=== PATIENT | male | born 1950 | race Caucasian/White ===

== ENCOUNTER 2025-05-01 17:59 | Inpatient (IN) | payer MEDICARE, MEDICAID ==
[~2025-05-01] VITALS: Ht 177.8 cm; Wt 100.7 kg
[~2025-05-01 17:59] MED LIST: AMIO200T33 OR; AMOX875T3 OR; ASPI1TAB20 OR; CARV3.1240 OR; ENAL10TA86; ENAL1TAB42 OR; GLIP10TA3; TAMS0.4C39 OR; WARF6TAB2
[2025-05-01 18:21] VITALS: PULSE 91; RESP 18; O2SAT 94
--- NOTE | 2025-05-01 18:21 | ED.PDOC ---
HPI Comments 74 y.o male with PMHx of HTN, HLD, DM, CAD, PE, presents to the ED via EMS for an evaluation of high blood pressure. Patient reports for the past couple of days, BP has been fluctuating but does admits to only using half his HTN medication (Losartan). Patient reports since his BP has been well controlled in the past, he cut the dosage down but today measured it and resulted 210/110. EMS reports on scene, patient's BP read 191/89. Patient does complain of chest heaviness that is non radiating that started today around 10am and developed diarrhea x last night. Patient denies any nausea, vomiting, dizziness, headaches, change of vision, SOB, leg swelling. Patient denies substance, alcohol or tobacco use. Patient is on eliquis due to hx of PE. Chief Complaint: High Blood Pressure Time Seen by MD: 18:00 Primary Care Provider: JORGE HAVE Reviewed Notes: Nurses Notes, Dermatology Physician Notes, Medications, Allergies Allergies: Coded Allergies: Alprazolam (Verified Allergy, Unknown, 06/21/16) Aspirin (Verified Allergy, Unknown, 06/21/16) Haloperidol (Verified Allergy, Unknown, 06/21/16) Hydrocodone (Verified Allergy, Unknown, 06/21/16) Lorazepam (Verified Allergy, Unknown, 06/21/16) Home Meds Reported Medications Enalapril Maleate (Vasotec) 10 Mg Tab 03/16/13 Amiodarone Hcl (Amiodarone Hcl) 200 Mg Tab, 200 MG OR BID 08/24/12 Enalapril Maleate (Enalapril Maleate) 2.5 Mg Tab, 2.5 MG OR HS 08/24/12 Aspirin (Aspir-81) 81 Mg Tab, 81 MG OR DAILY 08/24/12 Tamsulosin Hcl (Tamsulosin Hcl) 0.4 Mg Cap, 0.4 MG OR HS 08/24/12 Carvedilol (Carvedilol) 3.125 Mg Tab, 25 MG OR BID, 0 Refills 08/24/12 Amoxicillin Trihydrate (Amoxicillin) 875 Mg Tab, 875 MG OR BID 08/24/12 Glipizide (Glucotrol) 10 Mg Tab, BID 06/04/12 Warfarin Sodium (Coumadin) 6 Mg Tab, DAILY Do not take until advised to do so by [facility] after Protime results back. 06/04/12 Information Source: Patient, Emergency Med Personnel Mode of Arrival: EMS Severity: Moderate Timing: Hours Duration: Since onset Prehospital treatment: 12 Lead EKG, Accucheck, Quality Facilitator Location: Substernal Radiation: No Radiation Quality: Heavy Onset: At Rest Cardiac Risk Factors: Hyperlipidemia, HTN, Diabetes PE Risk Factors: None History of: DVT/PE Modifying Factors: Nothing Associated Signs and Symptoms: None Past Medical History PAST MEDICAL HISTORY: Anxiety, CAD, DM, High Lipids, HTN, PE Surgical History: CABG Family History Family History: Family hx of Cancer Social History Smoker: Quit Less Than 1 Year Alcohol: Denies ETOH Use Drugs: Denies Drug Use Lives In: Home Constitutional: denies: chills, diaphoresis, fatigue, fever, malaise, sweats, weakness, others EENTM: denies: blurred vision, double vision, ear bleeding, ear discharge, ear drainage, ear pain, ear ringing, eye pain, eye redness, hearing loss, mouth pain, mouth swelling, nasal discharge, nose bleeding, nose congestion, nose pain, photophobia, tearing, throat pain, throat swelling, voice changes, others Respiratory: denies: cough, hemoptysis, orthopnea, SOB at rest, shortness of breath, SOB with excertion, stridor, wheezing, others Cardiovascular: reports: chest pain; denies: dizzy spells, diaphoresis, Dyspnea on exertion, edema, irregular heart beat, left arm pain, lightheadedness, palpitations, PND, syncope, others Gastrointestinal: reports: diarrhea; denies: abdomen distended, abdominal pain, blood streaked bowels, constipated, dysphagia, difficulty swallowing, hematemesis, melena, nausea, poor appetite, poor fluid intake, rectal bleeding, rectal pain, vomiting, others Genitourinary: denies: burning, dysuria, flank pain, frequency, hematuria, incontinence, penile discharge, penile sore, pain, testicle pain, testicle swelling, urgency, others Neurological: denies: dizziness, fainting, headache, left sided numbness, left sided weakness, numbness, paresthesia, pre-existing deficit, right sided numbness, right sided weakness, seizure, speech problems, tingling, tremors, weakness, others Musculoskeletal: denies: back pain, gout, joint pain, joint swelling, muscle pain, muscle stiffness, neck pain, others Integumetry: denies: bruises, change in color, change in hair/nails, dryness, laceration, lesions, lumps, rash, wounds, others Allergic/Immunocompromised: denies: Difficulty Healing, Frequent Infections, Hives, Itching, others Hematologic/Lymphatic: denies: anemia, blood clots, easy bleeding, easy bruising, swollen glands, others Endocrine: denies: excessive hunger, excessive sweating, excessive thirst, excessive urination, flushing, intolerance to cold, intolerance to heat, unexplained weight gain, unexplained weight loss, others Psychiatric: denies: anxiety, bipolar disorder, depression, hopeless, panic disorder, schizophrenia, sleepless, suicidal, others All Other Systems: Reviewed and Negative Physical Exam General Appearance: Moderate Distress, Obese HEENT: Normal ENT Inspection, Pharynx Normal, TMs Normal Neck: Full Range of Motion, Non-Tender, Normal, Normal Inspection Respiratory: Chest Non-Tender, Lungs Clear, No Accessory Muscle Use, No Respiratory Distress, Normal Breath Sounds Cardiovascular: No Edema, No JVD, No Murmur, No Gallop, Normal Peripheral Pulses, Regular Rate/Rhythm Breast Exam: Deferred Gastrointestinal: No Organomegaly, Non Tender, No Pulsatile Mass, Normal Bowel Sounds, Soft Genitalia: Deferred Pelvic: Deferred Rectal: Deferred Extremities: No calf tenderness, Normal capillary refill, No pedal edema Musculoskeletal : Apperance: Normal Neurologic: Alert, communication consultant II-XII nml as Tested, Motor Weakness, Normal Affect, Normal Mood, No Sensory Deficits Cerebellar Function: Normal Reflexes: Normal Skin: Dry, Normal Color, Warm Lymphatic: No Adenopathy EKG EKG : Pulse Rate (adult): 88 [place]: Normal Cardiac Rhythm: NSR Block: None ST: Nonsp Was a procedure done? Was a procedure done?: No CP Differential Dx Differential Diagnosis: N/A Differential Diagnosis: HTN Essential, HTN Accelerated, HTN Encephalopathy, Medical NonCompliance Differential Diagnosis: Angina, Chest Wall Pain, Costochondritis, Esophageal reflux/spasm, Myocardial Infarction, Pericarditis X-Ray, Labs, Meds, VS Vital Signs Date Time Temp Pulse Resp B/P (MAP) Pulse Ox O2 Delivery O2 Flow Rate FiO2 05/01/25 19:38 88 177/81 (113) 05/01/25 18:58 88 05/01/25 18:21 91 18 94 Room Air* 0 21 05/01/25 18:14 99.3 91 20 159/73 (101) 94 99.3 05/01/25 18:07 98.3 87 20 191/89 (123) 98 98.3 05/01/25 18:05 88 Lab Test 05/01/25 18:41 Range/Units White Blood Count 8.1 4.4-10.8 10^3/uL Red Blood Count 4.56 4.5-5.90 10^6/uL Hemoglobin 13.6 13.5-17.5 g/dL Hematocrit 40.8 L 41.0-53.0 % Mean Corpuscular Volume 89.5 80.0-100.0 fL Mean Corpuscular Hemoglobin 29.9 28.0-32.0 pg Mean Corpuscular Hemoglobin Concent 33.4 32.0-36.0 g/dL Red Cell Distribution Width 14.4 H 11.8-14.3 % Platelet Count 190 140-450 10^3/uL Mean Platelet Volume 6.8 L 6.9-10.8 fL Neutrophils (%) (Auto) 75.0 37.0-80.0 % Lymphocytes (%) (Auto) 16.1 10.0-50.0 % Monocytes (%) (Auto) 7.4 0.0-12.0 % Eosinophils (%) (Auto) 1.1 0.0-7.0 % Basophils (%) (Auto) 0.4 0.0-2.0 % Neutrophils # (Auto) 6.1 1.6-8.6 10 ^3/uL Lymphocytes # (Auto) 1.3 0.4-5.4 10 ^3/uL Monocytes # (Auto) 0.6 0-1.3 10 ^3/uL Eosinophils # (Auto) 0.1 0-0.8 10 ^3/uL Basophils # (Auto) 0 0-0.2 10 ^3/uL Nucleated Red Blood Cells 0.0 % Sodium Level 141 136-145 mmol/L Potassium Level 4.0 3.5-5.1 mmol/L Chloride Level 105 98-107 mmol/L Carbon Dioxide Level 26 20-31 mmol/L Anion Gap 10 5-15 Blood Urea Nitrogen 27 H 9-23 mg/dL Creatinine 0.99 0.700-1.30 mg/dL Glomerular Filtration Rate Calc 80 >90 mL/min BUN/Creatinine Ratio 27.3 H 10.0-20.0 Serum Glucose 164 H 74-106 mg/dL Calcium Level 10.1 8.7-10.4 mg/dL Troponin I High Sensitivity 4 </=54 ng/L IV Hep-Lock was established. The patient's blood pressure is now 159/73 CHEST RADIOGRAPH IMPRESSION: Elevated left hemidiaphragm with left basilar atelectasis / scarring. Otherwise, no evidence for acute cardiopulmonary disease. IV Hep-Lock was established. The patient is being admitted with a diagnosis of acute coronary syndrome The patient was hypertensive when he arrived but is now 177/81 The patient's CBC and chemistry panel are within normal limits The troponin level is negative A cardiology consult will be obtained The patient is being admitted Images Reviewed?: Images reviewed and evaluated by me Time of 1ST Reevaluation: 19:00 Reevaluation 1ST: Unchanged Patient Education/Counseling: Diagnosis, Treatment, Prognosis Family Education/Counseling: No Family Present SEPSIS Sepsis Screen Date sepsis recognized/suspect: May 01, 2025 Time Sepsis recognized/suspect: 1800 Recent Procedure: No On Antibiotic Therapy: No Respiratory Rate >20: No Heart Rate >90: No Temp<36 C (96.8 F) or >38.3 C: No SBP <90 or MAP <65 mmHG: No New Acute Mental Status Change: No Is the patient on CPAP, BIPAP,: No Physician Orders Chest Portable (05/01/25 18:30) Urinalysis (05/01/25 18:30) Heplock Iv (05/01/25 18:30) Quality Facilitator (05/01/25 18:30) Blood Pressure (05/01/25 18:30) Pulse Oximetry (05/01/25 18:30) Electrocardigram (05/01/25 18:30) Troponin-I Hs (05/01/25 19:30) Troponin-I Hs (05/01/25 21:30) Electrocardigram (05/01/25 19:30) Electrocardigram (05/01/25 21:30) Vital Signs Date Time Temp Pulse Resp B/P (MAP) Pulse Ox O2 Delivery O2 Flow Rate FiO2 05/01/25 19:38 88 177/81 (113) 05/01/25 18:58 88 05/01/25 18:21 91 18 94 Room Air* 0 21 05/01/25 18:14 99.3 91 20 159/73 (101) 94 99.3 05/01/25 18:07 98.3 87 20 191/89 (123) 98 98.3 05/01/25 18:05 88 Laboratory Tests Test 05/01/25 18:41 White Blood Count 8.1 10^3/uL (4.4-10.8) Departure 1 Departure Time of Disposition: 18:58 Impression: Primary Impression: Hypertensive urgency Additional Impression: Acute coronary syndrome Disposition: ADMITTED INPATIENT Admit to: Tele Condition: Fair Critical Care Note Critical Care Time?: Yes (45 min-critical care time only) Stability Stability form required: Yes Unstable for transfer: Telemetry monitoring (Telemetry monitoring required), ED Physician Assesment (Clinical assesment) Heart Score Heart Score: Heart Score Response (Comments) Value History Slightly Suspicious 0 EKG Repolarization Disturb 1 Age >65 2 Risk Factors >3 or Hx ASHD 2 Troponin Normal limit 0 Total 5 I personally scribed for CYNDI LEWIS MD ([employer]) on 05/01/25 at 18:21. Electronically submitted by Shameka Rangel ([employer]). I personally scribed for CYNDI LEWIS MD ([employer]) on 05/01/25 at 19:32. Electronically submitted by Shameka Rangel ([employer]). CYNDI LEWIS MD May 01, 2025 18:21
--- NOTE | 2025-05-01 19:10 | DVH ---
CHEST RADIOGRAPH Indication: CP Technique: Single frontal view of the chest was obtained Comparison: None FINDINGS: Lines and Tubes: None Lungs: No focal consolidation. Elevation of the left hemidiaphragm with left basilar linear density. Pleura: No effusion. No pneumothorax. Cardiomediastinal contours: Size is within normal limits. Midline sternotomy wires surgical clips ar e noted consistent with prior history of CABG Bones: No acute osseous abnormality. IMPRESSION: Elevated left hemidiaphragm with left basilar atelectasis / scarring. Otherwise, no evidence for acu te cardiopulmonary disease.
[2025-05-01 19:17] LABS: Hematocrit 40.8 % (41.0-53.0); Hemoglobin 13.6 g/dL (13.5-17.5); Mean Corpuscular Hemoglobin 29.9 pg (28.0-32.0); Mean Corpuscular Volume 89.5 fL (80.0-100.0); Nucleated Red Blood Cells % 0.0 %
[2025-05-01 19:28] LABS: Chloride 105 mmol/L (98-107); Potassium 4.0 mmol/L (3.5-5.1); Sodium 141 mmol/L (136-145)
[2025-05-01 19:29] LABS: Anion Gap 10 (5-15); Calcium 10.1 mg/dL (8.7-10.4); Carbon Dioxide 26 mmol/L (20-31)
[2025-05-01 19:34] LABS: BUN/Creatinine Ratio 27.3 (10.0-20.0)
[2025-05-01 19:38] LABS: Blood Urea Nitrogen 27 mg/dL (9-23); Glucose 164 mg/dL (74-106)
[2025-05-01] MEDS ORDERED: ACETAMINOPHEN 325 MG TAB PO PRN (20:00)
[2025-05-01] MEDS ORDERED: DEXTROSE (50%) 50ML SYRG IV PRN (20:00)
[2025-05-01] MEDS ORDERED: ONDANSETRON HCL 4 MG/2 ML VIAL IV PRN (20:00)
[2025-05-01 20:55] LABS: Urine Protein, UAD TRACE (Negative)
[2025-05-01] MEDS ORDERED: hydrALAZINE HCL 20 MG/ML VL IV PRN (21:30)
--- NOTE | 2025-05-01 21:32 | DVHHP2 ---
History of Present Illness Reason for Visit: High blood pressure History of Present Illness 74-year-old male presents for evaluation of elevated blood pressure. He states today his blood pressure was in the 200s. Denies headache or blurred vision. Does report substernal heaviness. Denies shortness or breath. No other acute complaints reported. Past Medical History Dyslipidemia, hypertension, diabetes mellitus, CAD Past Surgical History CABG Family History Cancer Smoke: Quit ALCOHOL: none Drugs: None Lives: with Family Review of Systems Review of Systems Review of systems are currently negative otherwise addressed in HPI. Allergies: Coded Allergies: Alprazolam (Verified Allergy, Unknown, 06/21/16) Aspirin (Verified Allergy, Unknown, 06/21/16) Haloperidol (Verified Allergy, Unknown, 06/21/16) Hydrocodone (Verified Allergy, Unknown, 06/21/16) Lorazepam (Verified Allergy, Unknown, 06/21/16) Medications Current Medications Medications Dose Ordered Sig/Ginger Route Start Time Stop Time Status Last Admin Dose Admin Pravastatin Sodium 40 mg HS PO 05/01/25 22:00 Enalapril Maleate 10 mg Q12HR PO 05/01/25 22:00 Losartan Potassium 50 mg DAILY PO 05/02/25 10:00 Future Hold Apixaban 2.5 mg DAILY PO 05/02/25 10:00 Carvedilol 12.5 mg Q12HR PO 05/01/25 22:00 Diagnostic Test (Pha) 1 strip ACHS 05/01/25 22:00 Insulin Human Regular ACHS SC 05/01/25 22:00 Dextrose 50 ml UD PRN IV 05/01/25 20:00 Ondansetron HCl 4 mg Q4HP PRN IV 05/01/25 20:00 Acetaminophen 650 mg Q6HP PRN PO 05/01/25 20:00 Hydralazine HCl 10 mg Q6HP PRN IV 05/01/25 21:30 UNV Exam Vital Signs Vital Signs Date Time Temp Pulse Resp B/P (MAP) Pulse Ox O2 Delivery O2 Flow Rate FiO2 05/01/25 19:38 88 177/81 (113) 05/01/25 18:21 18 94 Room Air* 0 21 05/01/25 18:14 99.3 99.3 Exam Gen: 74-year-old male in mild distress. Skin: Warm, dry, normal color and texture, no rash. HEENT: Normocephalic atraumatic, mucous membranes moist and pink. Neck: Cervical and supraclavicular nodes normal without enlargement, trachea is midline, thyroid gland is normal without masses. Pulmonary: Clear to auscultation and percussion bilaterally. Cardiac: Regular rate and rhythm. No murmur Abdomen: Soft, nontender, nondistended, bowel sounds present all 4 quadrants, no guarding, no rigidity, no organomegaly. Extremities: No cyanosis, clubbing, no edema Neuro: Cranial nerves II through XII grossly intact, normal affect and speech, no focal motor deficits. Labs/Xrays ORDERING PHYSICIAN: CYNDI LEWIS MD PROCEDURE(s): CXRP - CHEST PORTABLE REASON: CP ORDER NUMBER(s): [id number], ACCESSION NUMBER(s): [id number] CHEST RADIOGRAPH Indication: CP Technique: Single frontal view of the chest was obtained Comparison: None FINDINGS: Lines and Tubes: None Lungs: No focal consolidation. Elevation of the left hemidiaphragm with left basilar linear density. Pleura: No effusion. No pneumothorax. Cardiomediastinal contours: Size is within normal limits. Midline sternotomy wires surgical clips are noted consistent with prior history of CABG Bones: No acute osseous abnormality. IMPRESSION: Elevated left hemidiaphragm with left basilar atelectasis / scarring. Otherwise, no evidence for acute cardiopulmonary disease. Labs Test 05/01/25 20:30 05/01/25 19:41 05/01/25 18:41 Range/Units Urine Color Colorless Yellow Urine Clarity Ex.turbid Clear Urine pH 5.0 5.0-9.0 Urine Specific [place] 1.017 1.001-1.035 Urine Protein Trace H Negative Urine Ketones 1+ H Negative Urine Blood 3+ H Negative /uL Urine Nitrite Negative Negative Urine Bilirubin Negative Negative Urine Urobilinogen Normal Negative mg/dL Urine Leukocyte Esterase Negative Negative /uL Urine RBC 303 0 - 3 /hpf Urine Microscopic WBC 10 H 0-3 /HPF Urine Squamous Epithelial Cells Few <5 /hpf Urine Bacteria None seen None Seen /hpf Urine Mucus Few None Seen Urine Glucose Normal Normal mg/dL Troponin I High Sensitivity 9 </=54 ng/L White Blood Count 8.1 4.4-10.8 10^3/uL Red Blood Count 4.56 4.5-5.90 10^6/uL Hemoglobin 13.6 13.5-17.5 g/dL Hematocrit 40.8 L 41.0-53.0 % Mean Corpuscular Volume 89.5 80.0-100.0 fL Mean Corpuscular Hemoglobin 29.9 28.0-32.0 pg Mean Corpuscular Hemoglobin Concent 33.4 32.0-36.0 g/dL Red Cell Distribution Width 14.4 H 11.8-14.3 % Platelet Count 190 140-450 10^3/uL Mean Platelet Volume 6.8 L 6.9-10.8 fL Neutrophils (%) (Auto) 75.0 37.0-80.0 % Lymphocytes (%) (Auto) 16.1 10.0-50.0 % Monocytes (%) (Auto) 7.4 0.0-12.0 % Eosinophils (%) (Auto) 1.1 0.0-7.0 % Basophils (%) (Auto) 0.4 0.0-2.0 % Neutrophils # (Auto) 6.1 1.6-8.6 10 ^3/uL Lymphocytes # (Auto) 1.3 0.4-5.4 10 ^3/uL Monocytes # (Auto) 0.6 0-1.3 10 ^3/uL Eosinophils # (Auto) 0.1 0-0.8 10 ^3/uL Basophils # (Auto) 0 0-0.2 10 ^3/uL Nucleated Red Blood Cells 0.0 % Sodium Level 141 136-145 mmol/L Potassium Level 4.0 3.5-5.1 mmol/L Chloride Level 105 98-107 mmol/L Carbon Dioxide Level 26 20-31 mmol/L Anion Gap 10 5-15 Blood Urea Nitrogen 27 H 9-23 mg/dL Creatinine 0.99 0.700-1.30 mg/dL Glomerular Filtration Rate Calc 80 >90 mL/min BUN/Creatinine Ratio 27.3 H 10.0-20.0 Serum Glucose 164 H 74-106 mg/dL Calcium Level 10.1 8.7-10.4 mg/dL SEPSIS Sepsis Screen Date sepsis recognized/suspect: May 01, 2025 Time Sepsis recognized/suspect: 1819 Recent Procedure: No On Antibiotic Therapy: No Respiratory Rate >20: No Heart Rate >90: No Temp<36 C (96.8 F) or >38.3 C: No SBP <90 or MAP <65 mmHG: No New Acute Mental Status Change: No Is the patient on CPAP, BIPAP,: No Physician Orders Chest Portable (05/01/25 18:30) Heplock Iv (05/01/25 18:30) Protein Scientist (05/01/25 18:30) Blood Pressure (05/01/25 18:30) Pulse Oximetry (05/01/25 18:30) Electrocardigram (05/01/25 18:30) Troponin-I Hs (05/01/25 21:30) Electrocardigram (05/01/25 19:30) Electrocardigram (05/01/25 21:30) Admit (05/01/25 19:54) Pravastatin Sodium Tablet (Pravachol Tab (05/01/25 22:00) Enalapril Tablet (Vasotec Tablet) (05/01/25 22:00) Losartan Tablet (Cozaar Tablet) (05/02/25 10:00) Apixaban (Eliquis) (05/02/25 10:00) Carvedilol Tablet (Coreg Tablet) (05/01/25 22:00) Basic Metabolic Panel (05/02/25 04:00) Glucose Blood (Accu-Chek Comfort Curve T (05/01/25 22:00) Insulin R (Human) (Insulin R) (05/01/25 22:00) Dextrose 50% Syringe (05/01/25 20:00) Ondansetron Hcl (Zofran) (05/01/25 20:00) Cardiac Diet-2gna,Lofat,Lochol (05/02/25 Breakfast) Echo 2d Mode Cardiac Dop (05/01/25 19:57) Condition: Stable (05/01/25 19:57) Acetaminophen Tablet (Tylenol Tablet) (05/01/25 20:00) Bedrest With Bathroom Privileg (05/01/25 19:57) Hydralazine Injection (Apresoline Inject (05/01/25 21:30) Vital Signs Date Time Temp Pulse Resp B/P (MAP) Pulse Ox O2 Delivery O2 Flow Rate FiO2 05/01/25 19:38 88 177/81 (113) 05/01/25 18:58 88 05/01/25 18:21 91 18 94 Room Air* 0 21 05/01/25 18:14 99.3 91 20 159/73 (101) 94 99.3 05/01/25 18:07 98.3 87 20 191/89 (123) 98 98.3 05/01/25 18:05 88 Laboratory Tests Test 05/01/25 18:41 White Blood Count 8.1 10^3/uL (4.4-10.8) Assessment/Plan Assessment/Plan Assessment Hypertensive urgency Diabetes mellitus Status post CABG Plan Admit the patient to [facility] to the hospitalist As needed antihypertensives Echocardiogram pending Continue treatment per orders. Plan discussed with: Patient My Orders Orders - ROMARIO MICHEL Procedure Category Date Status Time Admit ADMIT 05/01/25 Transmitted 19:54 Pravastatin Sodium PHA 05/01/25 In Process Tablet (Pravachol Tab 22:00 Enalapril Tablet PHA 05/01/25 In Process (Vasotec Tablet) 22:00 Losartan Tablet PHA 05/02/25 In Process (Cozaar Tablet) 10:00 Apixaban (Eliquis) PHA 05/02/25 In Process 10:00 Carvedilol Tablet PHA 05/01/25 In Process (Coreg Tablet) 22:00 Basic Metabolic Panel LAB 05/02/25 Verified 04:00 Glucose Blood PHA 05/01/25 In Process (Accu-Chek Comfort 22:00 Insulin R (Human) PHA 05/01/25 In Process (Insulin R) 22:00 Dextrose 50% Syringe PHA 05/01/25 In Process 20:00 Ondansetron Hcl PHA 05/01/25 In Process (Zofran) 20:00 Cardiac DIET 05/02/25 Transmitted Diet-2gna,Lofat,Lochol Breakfast Echo 2d Mode Cardiac US 05/01/25 Logged DOP 19:57 Condition: Stable JUAN 05/01/25 In Process 19:57 Acetaminophen Tablet PHA 05/01/25 In Process (Tylenol Tablet) 20:00 Bedrest With Bathroom JUAN 05/01/25 In Process Privileg 19:57 Hydralazine Injection PHA 05/01/25 Transmitted (Apresoline Inject 21:30 Date of Service: May 01, 2025 Billing Provider: ROMARIO MICHEL Common Visit Codes: [id number] INP/OBS CARE (HIGH) ROMARIO MICHEL May 01, 2025 21:32
[2025-05-01] MEDS: ENALAPRIL MALEATE 10 MG TAB PO SCH (22:00)
[2025-05-01] MEDS: CARVEDILOL 12.5 MG TAB PO SCH (22:00)
[2025-05-01] MEDS: ACCU-CHEK COMFORT CURVE STRIP VI SCH (22:00)
[2025-05-01 22:11] VITALS: BP 142/70; PULSE 99; RESP 14; RESP 18; TEMP 97.8; O2SAT 95
[2025-05-01] MEDS: PRAVASTATIN SODIUM 20 MG TAB PO SCH (22:57)
[2025-05-01] MEDS ORDERED: METF-372 PO (23:00)
[2025-05-01] MEDS ORDERED: ENAL1TAB48 PO (23:00)
[2025-05-01] MEDS ORDERED: CARV25TA55 PO (23:00)
[2025-05-01] MEDS ORDERED: GLIP10TA21 PO (23:00)
[2025-05-01] MEDS ORDERED: APIX2.5T PO (23:00)
[2025-05-01] MEDS ORDERED: LOSA-534 PO (23:00)
[2025-05-01] MEDS ORDERED: LINA5TAB PO (23:00)
[2025-05-01] MEDS: InsuLIN REG 1unit/0.01ml Soln (100units/ml) SC SCH (23:03)
[2025-05-02] VITALS (7 sets, daily range): BP systolic 105–156; BP diastolic 57–82; PULSE 74–87; RESP 14–17; TEMP 97.8–98.9; O2SAT 93–98
[2025-05-02 07:21] LABS: Anion Gap 9 (5-15); Carbon Dioxide 29 mmol/L (20-31); Chloride 104 mmol/L (98-107); Potassium 3.8 mmol/L (3.5-5.1); Sodium 142 mmol/L (136-145)
[2025-05-02 07:22] LABS: Calcium 9.8 mg/dL (8.7-10.4)
[2025-05-02 07:27] LABS: BUN/Creatinine Ratio 24.5 (10.0-20.0); Blood Urea Nitrogen 23 mg/dL (9-23)
[2025-05-02 07:29] LABS: Glucose 157 mg/dL (74-106)
[2025-05-02] MEDS: APIXABAN 2.5 MG TAB PO SCH (09:10)
[2025-05-02] MEDS ORDERED: LOSARTAN POTASSIUM 50 MG TAB PO SCH (10:00)
--- NOTE | 2025-05-02 13:09 | DVHPN2 ---
Progress Note Date Seen: May 02, 2025 Medical Necessity Reason Pt with a Central, PICC or Fol: No Subjective Patient reports: No new complaints Review of Systems: HEENT:Normal, CVS:Normal, RESPIRATORY:Normal, GI:Normal, :Normal, MSK:Normal, NEURO:Normal Objective vital signs Vital Sign Date Time Temp Pulse Resp B/P (MAP) Pulse Ox O2 Delivery O2 Flow Rate FiO2 05/02/25 10:11 73 127/72 05/02/25 08:40 98.9 14 97 98.9 05/02/25 08:01 Room Air* 0 21 Total Intake and Output 05/01/25 05/01/25 05/02/25 15:00 23:00 07:00 Intake Total 300 ml Balance 300 ml medications Current Medications Medications Dose Ordered Sig/Ginger Route Start Time Stop Time Status Last Admin Dose Admin Pravastatin Sodium 40 mg HS PO 05/01/25 22:00 05/01/25 22:57 40 MG Enalapril Maleate 10 mg Q12HR PO 05/01/25 22:00 05/02/25 09:11 10 MG Losartan Potassium 50 mg DAILY PO 05/02/25 10:00 Hold Apixaban 2.5 mg DAILY PO 05/02/25 10:00 05/02/25 09:10 2.5 MG Carvedilol 12.5 mg Q12HR PO 05/01/25 22:00 05/02/25 09:11 12.5 MG Diagnostic Test (Pha) 1 strip ACHS 05/01/25 22:00 05/02/25 11:49 1 STRIP Insulin Human Regular ACHS SC 05/01/25 22:00 05/02/25 11:49 3 UNITS Dextrose 50 ml UD PRN IV 05/01/25 20:00 Ondansetron HCl 4 mg Q4HP PRN IV 05/01/25 20:00 Acetaminophen 650 mg Q6HP PRN PO 05/01/25 20:00 Hydralazine HCl 10 mg Q6HP PRN IV 05/01/25 21:30 Examination: GENERAL:Normal, HEENT:Normal, NECK:Normal, LUNGS:Normal, CVS:Normal, ABDOMEN:Normal, MSK:Normal, MSK:Abnormal (rash both legs), SKIN:Normal, NEURO:Normal, :Normal laboratory and microbiology Laboratory Tests 05/02/25 06:10 05/01/25 18:41 Test 05/02/25 06:10 Range/Units Serum Glucose 157 H 74-106 mg/dL Problem List/Assessment/Plan Problem List/Assessment/Plan #1 hypertensive urgency: cont meds #2 chest pain: cardio eval #3 cad s/p cabg #4 a fib with secondary hypercoaguable state #5 dm:ssi #6 hyperlipidemia #7 bph #8 obesity advance care planning- full code- time spent 19 mins Plan discussed with: Patient My Orders My Orders Orders - ROMARIO MARTINEZ MD Procedure Category Date Status Time * Cardiology Consult CONS 05/02/25 Transmitted 13:02 Echo 2d Mode Cardiac US 05/02/25 Logged DOP 13:02 Complete Blood Count LAB 05/03/25 Verified 06:00 Comprehensive LAB 05/03/25 Verified Metabolic Panel 06:00 Thyroid Stimulating LAB 05/03/25 Verified Hormone 05:00 Hemoglobin A1c LAB 05/03/25 Verified 06:00 Date of Service: May 02, 2025 Billing Provider: ROMARIO MARTINEZ MD Common Visit Codes: [id number] INP/OBS CARE(HIGH) Secondary Visit Codes: [id number] CARE PLAN 30 MINUTES ROMARIO MARTINEZ MD May 02, 2025 13:09
--- NOTE | 2025-05-02 13:11 | ECG ---
[facility] Test Date: 2025-05-01 Test Time: 18:05:15 Pat Name: ALEK QUINONEZ Department: ED Room: [facility] Gender: M Process Safety Engineer: BK : [id number] Requested By: CYNDI LEWIS Order Number: [id number] Reading MD: Fabian Gupta Measurements Intervals [place] Rate: 88 P: 44 RI: 152 QRS: -18 QRSD: 97 T: 61 QT: 355 QTc: 430 Interpretive Statements Sinus rhythm Borderline left axis deviation Electronically Signed On 05-03-2025 16:59:14 PDT by Fabian Gupta Please click the below link to view image of tracing.
[2025-05-02] MEDS: TAMSULOSIN HYDROCHLORIDE 0.4 MG CAP PO SCH (16:51)
[2025-05-02] MEDS: AMIODARONE HCL 200 MG TAB PO SCH (22:00)
--- NOTE | 2025-05-02 23:47 | DVHINCON2 ---
Date of service: May 02, 2025 Referring Physician Kyle Reason for Consultation CAD History of Present Illness This is a 74 year old male with a PMH of Anxiety, CAD, DM, High Lipids, HTN, PE who was brought in by EMS with complaints of high blood pressure. Patient reports for the past couple of days his BP has been fluctuating but does admits to only using half his HTN medication (Losartan). Patient reports since his BP has been well controlled in the past, he cut the dosage down but today measured it at 210/110. Per EMS reports, the patients BP was 191/89. Patient does complain of chest heaviness that is non radiating that started today around 10am and developed diarrhea last night. EKG is NSR at 88. CBC and chemistry panel are within normal limits. Troponin level is negative. Chest x-ray shows NAD. Patient was admitted to the hospital. I am asked to consult on this patient. Family History: Patient reports no known family medical history. Allergies: Coded Allergies: Alprazolam (Verified Allergy, Unknown, 06/21/16) Aspirin (Verified Allergy, Unknown, 06/21/16) Haloperidol (Verified Allergy, Unknown, 06/21/16) Hydrocodone (Verified Allergy, Unknown, 06/21/16) Lorazepam (Verified Allergy, Unknown, 06/21/16) Home Meds Reported Medications Glipizide (Glipizide Er) 10 Mg Tab, 1 TAB PO DAILY 05/01/25 Metformin Hydrochloride (Metformin Hcl) 1,000 Mg Tab, 1 TAB PO BID 05/01/25 Linagliptin Base (TRADJENTA) 5 Mg Tab, 1 TAB PO DAILY 05/01/25 Apixaban Base (ELIQUIS) 2.5 Mg Tab, TAB PO 05/01/25 Losartan Potassium (Losartan Potassium) 50 Mg Tab, 1 TAB PO DAILY 05/01/25 Enalapril Maleate (Enalapril Maleate) 20 Mg Tab, 1 TAB PO BID 05/01/25 Carvedilol (Carvedilol) 25 Mg Tab, TAB PO 05/01/25 Enalapril Maleate (Vasotec) 10 Mg Tab 03/16/13 Amiodarone Hcl (Amiodarone Hcl) 200 Mg Tab, 200 MG OR BID 08/24/12 Enalapril Maleate (Enalapril Maleate) 2.5 Mg Tab, 2.5 MG OR HS 08/24/12 Aspirin (Aspir-81) 81 Mg Tab, 81 MG OR DAILY 08/24/12 Tamsulosin Hcl (Tamsulosin Hcl) 0.4 Mg Cap, 0.4 MG OR HS 08/24/12 Carvedilol (Carvedilol) 3.125 Mg Tab, 25 MG OR BID, 0 Refills 08/24/12 Amoxicillin Trihydrate (Amoxicillin) 875 Mg Tab, 875 MG OR BID 08/24/12 Glipizide (Glucotrol) 10 Mg Tab, BID 06/04/12 Warfarin Sodium (Coumadin) 6 Mg Tab, DAILY Do not take until advised to do so by [facility] after Pro[facility] results back. 06/04/12 Current Medications Current Medications Medications (Trade) Dose Ordered Sig/Ginger Route PRN Reason Start Time Stop Time Status Last Admin Losartan Potassium (Cozaar Tablet) 50 mg DAILY PO 05/02/25 10:00 05/02/25 13:06 DC Apixaban (Eliquis) 2.5 mg DAILY PO 05/02/25 10:00 05/02/25 09:10 Tamsulosin HCl (Flomax) 0.4 mg QPM PO 05/02/25 18:00 05/02/25 16:57 Amiodarone HCl (Cordarone Tablet) 200 mg Q12HR PO 05/02/25 22:00 Review of Systems Constitutional: denies: chills, diaphoresis, fatigue, fever, malaise, sweats, weakness, others EENTM: denies: blurred vision, double vision, ear bleeding, ear discharge, ear drainage, ear pain, ear ringing, eye pain, eye redness, hearing loss, mouth pain, mouth swelling, nasal discharge, nose bleeding, nose congestion, nose pain, photophobia, tearing, throat pain, throat swelling, voice changes, others Respiratory: denies: cough, hemoptysis, orthopnea, SOB at rest, shortness of breath, SOB with excertion, stridor, wheezing, others Cardiovascular: reports: chest pain; denies: dizzy spells, diaphoresis, Dyspnea on exertion, edema, irregular heart beat, left arm pain, lightheadedness, palpitations, PND, syncope, others Gastrointestinal: reports: diarrhea; denies: abdomen distended, abdominal pain, blood streaked bowels, constipated, dysphagia, difficulty swallowing, hematemesis, melena, nausea, poor appetite, poor fluid intake, rectal bleeding, rectal pain, vomiting, others Genitourinary: denies: burning, dysuria, flank pain, frequency, hematuria, incontinence, penile discharge, penile sore, pain, testicle pain, testicle swelling, urgency, others Neurological: denies: dizziness, fainting, headache, left sided numbness, left sided weakness, numbness, paresthesia, pre-existing deficit, right sided numbness, right sided weakness, seizure, speech problems, tingling, tremors, weakness, others Musculoskeletal: denies: back pain, gout, joint pain, joint swelling, muscle pain, muscle stiffness, neck pain, others Integumetry: denies: bruises, change in color, change in hair/nails, dryness, laceration, lesions, lumps, rash, wounds, others Allergic/Immunocompromised: denies: Difficulty Healing, Frequent Infections, Hives, Itching, others Hematologic/Lymphatic: denies: anemia, blood clots, easy bleeding, easy bruising, swollen glands, others Endocrine: denies: excessive hunger, excessive sweating, excessive thirst, excessive urination, flushing, intolerance to cold, intolerance to heat, unexplained weight gain, unexplained weight loss, others Psychiatric: denies: anxiety, bipolar disorder, depression, hopeless, panic disorder, schizophrenia, sleepless, suicidal, others All Other Systems: Reviewed and Negative Vital Signs Vital Signs Date Time Temp Pulse Resp B/P (MAP) Pulse Ox O2 Delivery O2 Flow Rate FiO2 05/02/25 22:39 156/81 05/02/25 22:38 84 05/02/25 21:00 98.3 16 95 98.3 05/02/25 08:01 Room Air* 0 21 Physical Exam GENERAL: Alert and oriented x 3. No acute distress. Obese. EYES: PERRL, EOMI. Anicteric. HENT: Moist mucous membranes. LUNGS: Clear to auscultation bilaterally. CARDIOVASCULAR: Regular rate and rhythm. ABDOMEN: Soft, non-tender and non-distended. EXTREMITIES: No edema. NEUROLOGIC: No focal neurological deficits. SKIN: Warm, dry. Labs/Diagnostic Data Labs Test 05/02/25 22:46 05/02/25 06:10 05/01/25 21:22 05/01/25 20:30 Range/Units POC Glucose 178 H 70-106 mg/dl Sodium Level 142 136-145 mmol/L Potassium Level 3.8 3.5-5.1 mmol/L Chloride Level 104 98-107 mmol/L Carbon Dioxide Level 29 20-31 mmol/L Anion Gap 9 5-15 Blood Urea Nitrogen 23 9-23 mg/dL Creatinine 0.94 0.700-1.30 mg/dL Glomerular Filtration Rate Calc 86 >90 mL/min BUN/Creatinine Ratio 24.5 H 10.0-20.0 Serum Glucose 157 H 74-106 mg/dL Calcium Level 9.8 8.7-10.4 mg/dL Troponin I High Sensitivity 5 </=54 ng/L Urine Color Colorless Yellow Urine Clarity Ex.turbid Clear Urine pH 5.0 5.0-9.0 Urine Specific [place] 1.017 1.001-1.035 Urine Protein Trace H Negative Urine Ketones 1+ H Negative Urine Blood 3+ H Negative /uL Urine Nitrite Negative Negative Urine Bilirubin Negative Negative Urine Urobilinogen Normal Negative mg/dL Urine Leukocyte Esterase Negative Negative /uL Urine RBC 303 0 - 3 /hpf Urine Microscopic WBC 10 H 0-3 /HPF Urine Squamous Epithelial Cells Few <5 /hpf Urine Bacteria None seen None Seen /hpf Urine Mucus Few None Seen Urine Glucose Normal Normal mg/dL Test 05/01/25 18:41 Range/Units White Blood Count 8.1 4.4-10.8 10^3/uL Red Blood Count 4.56 4.5-5.90 10^6/uL Hemoglobin 13.6 13.5-17.5 g/dL Hematocrit 40.8 L 41.0-53.0 % Mean Corpuscular Volume 89.5 80.0-100.0 fL Mean Corpuscular Hemoglobin 29.9 28.0-32.0 pg Mean Corpuscular Hemoglobin Concent 33.4 32.0-36.0 g/dL Red Cell Distribution Width 14.4 H 11.8-14.3 % Platelet Count 190 140-450 10^3/uL Mean Platelet Volume 6.8 L 6.9-10.8 fL Neutrophils (%) (Auto) 75.0 37.0-80.0 % Lymphocytes (%) (Auto) 16.1 10.0-50.0 % Monocytes (%) (Auto) 7.4 0.0-12.0 % Eosinophils (%) (Auto) 1.1 0.0-7.0 % Basophils (%) (Auto) 0.4 0.0-2.0 % Neutrophils # (Auto) 6.1 1.6-8.6 10 ^3/uL Lymphocytes # (Auto) 1.3 0.4-5.4 10 ^3/uL Monocytes # (Auto) 0.6 0-1.3 10 ^3/uL Eosinophils # (Auto) 0.1 0-0.8 10 ^3/uL Basophils # (Auto) 0 0-0.2 10 ^3/uL Nucleated Red Blood Cells 0.0 % Assessment Hypertensive urgency. Chest pain. CAD s/p CABG. A fib with secondary hypercoagulable state. DM. Hyperlipidemia BPH. Obesity. Plan/Recommendation I agree with your ongoing assessment and care of plan. Echocardiogram. Amiodarone. Eliquis. Coreg, Vasotec. IV Hydralazine for SBP >150. Additional plan as per the hospital course. A total of 45 minutes was spent reviewing the patient record, examining the patient, making a diagnostic and therapeutic plan, discussing this plan with medical personnel, following up on diagnostic studies and following the patient for clinical stability excluding any and all procedures. At least 50% of this time was spent in direct, [id number] contact. Plan discussed with: Patient ALEXANDRA MARTINEZ MD May 02, 2025 23:47
[2025-05-03 01:00] VITALS: BP 127/76; PULSE 76; RESP 16; TEMP 98.3; O2SAT 94
[2025-05-03 05:00] VITALS: BP 122/64; PULSE 74; RESP 16; TEMP 97.7; O2SAT 93
[2025-05-03 06:41] LABS: Hematocrit 35.4 % (41.0-53.0); Hemoglobin 12.2 g/dL (13.5-17.5); Mean Corpuscular Hemoglobin 30.3 pg (28.0-32.0); Mean Corpuscular Volume 88.1 fL (80.0-100.0); Nucleated Red Blood Cells % 0.0 %
[2025-05-03 06:59] LABS: Alanine Aminotransferase 12 U/L (7-40); Albumin 4.1 g/dL (3.2-4.8); Alkaline Phosphatase 54 U/L (46-116); Anion Gap 10 (5-15); BUN/Creatinine Ratio 23.4 (10.0-20.0); Blood Urea Nitrogen 22 mg/dL (9-23); Calcium 9.8 mg/dL (8.7-10.4); Carbon Dioxide 28 mmol/L (20-31); Chloride 104 mmol/L (98-107); Potassium 3.7 mmol/L (3.5-5.1); Sodium 142 mmol/L (136-145); Total Protein 6.8 g/dL (5.7-8.2)
[2025-05-03 07:00] LABS: Bilirubin, Total 0.5 mg/dL (0.2-1.0)
[2025-05-03 07:03] LABS: Glucose 150 mg/dL (74-106)
[2025-05-03 07:55] VITALS: RESP 17
[2025-05-03 09:00] VITALS: BP 147/85; PULSE 75; RESP 18; TEMP 97.7; O2SAT 95
--- NOTE | 2025-05-03 09:22 | DVHSR ---
APPROVED REPORT EXAM: Two-dimensional and M-mode echocardiogram with Doppler and color Doppler. Blood Pressure: 142/60 mmHg INDICATION Chest Pain Surgery/Intervention CABG: RISK FACTORS Height: 70, Weight: 229 DIMENSIONS LVDd4.4 (3.8-5.7cm)LA (2D)4.9 (1.9-4.0cm)Aortic Root4.1 (2.0-3.7cm) LVDs3.2 (2.5-4.0cm)LA (MM) (1.9-4.0cm)Aortic Cusp Exc1.7 (1.5-2.0cm) EF (%) 54.0 (55-70%)Rt. Atrium4.3 (1.9-4.0cm)Asc. Aorta cm IVSd1.1 (0.7-1.1cm)RV (D) (1.8-2.4cm) Mitral Valve MitralMitral Stenosis E wave0.74m/sMV Mean GR.mmHg A wave1.12m/sMV Peak GR.106mmHg E/A ratio0.72D MVAcm2 DECEL [id number] 1/2 [id number] IVRTmsDop MVA2.75cm2 Aortic Valve Aortic ValveAortic Stenosis V10.94m/Sandra Mean GR.5mmHg V21.45m/Sandra Peak GR.8mmHg LVOT Diameter2.2 (1.8-2.4cm)Doppler AVA2.46cm2 Pulmonic Valve V20.95m/s Tricuspid Valve TR Velocity2.60m/s [id number] Other Information Technically limited study due to body habitus and patient position. Patient sitting straight up duri ng exam. Conclusion MILD LVH AND MILD LV DIASTOLIC DYSFUNCTION LV EF IS 54% MODERATELY DILATED LA APICAL AND ANTERIOR WALL HYPOKINESIS CONSISTENT WITH PREVIOUS OR RECENT ANTERIOR WALL PA DYSKINESIS OF IVS MODERATELY DILATED RV NORMAL VALVES NO EFFUSION
[2025-05-03 13:00] VITALS: BP 103/60; PULSE 109; RESP 18; TEMP 98.1; O2SAT 95
--- NOTE | 2025-05-03 13:06 | DVHDS2 ---
Discharge Summary Date of Admission May 01, 2025 at 19:54 Date of Discharge: May 03, 2025 Labs/Diagnostic Data: Laboratory Results Test 05/03/25 11:54 05/03/25 05:05 05/01/25 21:22 05/01/25 20:30 POC Glucose 211 mg/dl (70-106) White Blood Count 7.4 10^3/uL (4.4-10.8) Red Blood Count 4.02 10^6/uL (4.5-5.90) Hemoglobin 12.2 g/dL (13.5-17.5) Hematocrit 35.4 % (41.0-53.0) Mean Corpuscular Volume 88.1 fL (80.0-100.0) Mean Corpuscular Hemoglobin 30.3 pg (28.0-32.0) Mean Corpuscular Hemoglobin Concent 34.4 g/dL (32.0-36.0) Red Cell Distribution Width 14.4 % (11.8-14.3) Platelet Count 175 10^3/uL (140-450) Mean Platelet Volume 6.8 fL (6.9-10.8) Neutrophils (%) (Auto) 61.6 % (37.0-80.0) Lymphocytes (%) (Auto) 25.6 % (10.0-50.0) Monocytes (%) (Auto) 10.9 % (0.0-12.0) Eosinophils (%) (Auto) 1.6 % (0.0-7.0) Basophils (%) (Auto) 0.3 % (0.0-2.0) Neutrophils # (Auto) 4.5 10 ^3/uL (1.6-8.6) Lymphocytes # (Auto) 1.9 10 ^3/uL (0.4-5.4) Monocytes # (Auto) 0.8 10 ^3/uL (0-1.3) Eosinophils # (Auto) 0.1 10 ^3/uL (0-0.8) Basophils # (Auto) 0 10 ^3/uL (0-0.2) Nucleated Red Blood Cells 0.0 % Sodium Level 142 mmol/L (136-145) Potassium Level 3.7 mmol/L (3.5-5.1) Chloride Level 104 mmol/L (98-107) Carbon Dioxide Level 28 mmol/L (20-31) Anion Gap 10 (5-15) Blood Urea Nitrogen 22 mg/dL (9-23) Creatinine 0.94 mg/dL (0.700-1.30) Glomerular Filtration Rate Calc 86 mL/min (>90) BUN/Creatinine Ratio 23.4 (10.0-20.0) Serum Glucose 150 mg/dL (74-106) Hemoglobin A1c 8.5 % A1C (<5.7) Calcium Level 9.8 mg/dL (8.7-10.4) Total Bilirubin 0.5 mg/dL (0.2-1.0) Aspartate Amino Transferase (AST) 22 U/L (13-40) Alanine Aminotransferase (ALT) 12 U/L (7-40) Alkaline Phosphatase 54 U/L (46-116) Total Protein 6.8 g/dL (5.7-8.2) Albumin 4.1 g/dL (3.2-4.8) Thyroid Stimulating Hormone (TSH) 4.27 uIU/mL (0.55-4.78) Troponin I High Sensitivity 5 ng/L (</=54) Urine Color Colorless (Yellow) Urine Clarity Ex.turbid (Clear) Urine pH 5.0 (5.0-9.0) Urine Specific [place] 1.017 (1.001-1.035) Urine Protein Trace (Negative) Urine Ketones 1+ (Negative) Urine Blood 3+ /uL (Negative) Urine Nitrite Negative (Negative) Urine Bilirubin Negative (Negative) Urine Urobilinogen Normal mg/dL (Negative) Urine Leukocyte Esterase Negative /uL (Negative) Urine RBC 303 /hpf (0 - 3) Urine Microscopic WBC 10 /HPF (0-3) Urine Squamous Epithelial Cells Few /hpf (<5) Urine Bacteria None seen /hpf (None Seen) Urine Mucus Few (None Seen) Urine Glucose Normal mg/dL (Normal) Other Laboratory Tests 05/03/25 05:05 Brief Hx & Hospital Course: SEE DICTATED NOTE Condition at Discharge: Fair Final Diagnosis/Problems List HTN Discharge Disposition: Home Discharge Instruct/Medications Diet: Cardiac 2g Na,low cholest Activity: No Restrictions, As Tolerated Follow Up/Referral: FU WITH DR Good MARTINEZ IN AM Medications: RESUME HOME MEDS Scheduled Amiodarone Hcl (Amiodarone Hcl), 200 MG OR BID, (Reported) Amoxicillin Trihydrate (Amoxicillin), 875 MG OR BID, (Reported) Aspirin (Aspir-81), 81 MG OR DAILY, (Reported) Carvedilol (Carvedilol), 25 MG OR BID, (Reported) Enalapril Maleate (Enalapril Maleate), 2.5 MG OR HS, (Reported) Enalapril Maleate (Enalapril Maleate), 1 TAB PO BID, (Reported) Glipizide (Glucotrol), BID, (Reported) Glipizide (Glipizide Er), 1 TAB PO DAILY, (Reported) Linagliptin Base (Tradjenta), 1 TAB PO DAILY, (Reported) Losartan Potassium (Losartan Potassium), 1 TAB PO DAILY, (Reported) Metformin Hydrochloride (Metformin Hcl), 1 TAB PO BID, (Reported) Tamsulosin Hcl (Tamsulosin Hcl), 0.4 MG OR HS, (Reported) Warfarin Sodium (Coumadin), DAILY, (Reported) Miscellaneous Medications Apixaban Base (Eliquis), TAB PO, (Reported) Carvedilol (Carvedilol), TAB PO, (Reported) Enalapril Maleate (Vasotec), (Reported) Discharge Statement: "Patient was advised to return to the ER or call 911 if any headaches, dizziness, shortness of breath, chest pain, abdominal pain, bleeding, fevers, or worsening of medical condition. Patient was counseled about treatment plan, medications, possible side effects, patientverbalized understanding. All questions were answered to the best of my ability. This discharge took greater then 30 minutes in planning, reviewing documentation, counseling the patient, and discussing with other team members." ASSESSMENT ASSESSMENT Assessment HTN Date of Service: May 03, 2025 Billing Provider: ROMARIO MARTINEZ MD Common Visit Codes: 13838-SSB/OBS DISCH DAY >30min ROMARIO MARTINEZ MD May 03, 2025 13:06
--- NOTE | 2025-05-03 13:19 | DVHDS ---
DATE OF DISCHARGE: 05/03/2025 HISTORY OF PRESENT ILLNESS: The patient is a 74-year-old gentleman who was admitted with elevated blood pressure and some chest discomfort. He has previous history of CABG, hypertension, hyperlipidemia, and diabetes. HOSPITAL COURSE: The patient was seen in cardiology consult by Dr. Christie. Echocardiogram done showed ejection fraction of 54% with moderately dilated left atrium. The patient's troponin levels were negative for acute DE. The patient's A1c was 8.5. As per Dr. Christie, the patient can be discharged home to follow up with his office in the morning. The patient will, therefore, be discharged to resume his home medications and follow up with Dr. Christie. FINAL DIAGNOSES: * Hypertensive urgency. * Chest pain with previous coronary artery disease status post CABG. * Atrial fibrillation with secondary hypercoagulable state. * Diabetes mellitus. * Hyperlipidemia. * BPH. * Obesity. Time spent in discharge planning and review of plan with the patient and it infrastructure consultant was 38 minutes. MD FLORECITA Jones/MARTINA TID: [id number] RECEIPT: [id number]
[2025-05-03 13:42] VITALS: BP 103/60; PULSE 105; TEMP 36.5
--- NOTE | 2025-05-03 23:50 | DVHPN2 ---
Progress Note - Dictate Date Seen: May 03, 2025 Medical Necessity Reason Pt with a Central, PICC or Fol: No Subjective Patient was seen and evaluated in follow up. No overnight events. Patient complains of generalized pain. Echocardiogram shows an EF of 54%. GLUC 211, HGB A1C 8.5. vital signs Vital Sign Date Time Temp Pulse Resp B/P (MAP) Pulse Ox O2 Delivery O2 Flow Rate FiO2 05/03/25 13:42 36.5 105 05/03/25 13:00 18 103/60 (74) 95 05/03/25 07:55 Room Air* 0 21 Total Intake and Output 05/02/25 05/02/25 05/03/25 15:00 23:00 07:00 Intake Total 800 ml 300 ml Balance 800 ml 300 ml medications Current Medications Medications Dose Ordered Sig/Ginger Route Start Time Stop Time Status Last Admin Dose Admin Pravastatin Sodium 40 mg HS PO 05/01/25 22:00 05/02/25 22:39 40 MG Enalapril Maleate 10 mg Q12HR PO 05/01/25 22:00 05/03/25 10:51 10 MG Apixaban 2.5 mg DAILY PO 05/02/25 10:00 05/03/25 10:51 2.5 MG Carvedilol 12.5 mg Q12HR PO 05/01/25 22:00 05/03/25 10:51 12.5 MG Diagnostic Test (Pha) 1 strip ACHS 05/01/25 22:00 05/03/25 12:14 1 STRIP Insulin Human Regular ACHS SC 05/01/25 22:00 05/03/25 12:18 4 UNITS Dextrose 50 ml UD PRN IV 05/01/25 20:00 Ondansetron HCl 4 mg Q4HP PRN IV 05/01/25 20:00 Acetaminophen 650 mg Q6HP PRN PO 05/01/25 20:00 Hydralazine HCl 10 mg Q6HP PRN IV 05/01/25 21:30 Tamsulosin HCl 0.4 mg QPM PO 05/02/25 18:00 05/02/25 16:57 0.4 MG Amiodarone HCl 200 mg Q12HR PO 05/02/25 22:00 objective GENERAL: Alert and oriented x 3. No acute distress. Obese. EYES: PERRL, EOMI. Anicteric. HENT: Moist mucous membranes. LUNGS: Clear to auscultation bilaterally. CARDIOVASCULAR: Regular rate and rhythm. ABDOMEN: Soft, non-tender and non-distended. EXTREMITIES: No edema. NEUROLOGIC: No focal neurological deficits. SKIN: Warm, dry. laboratory and microbiology Laboratory Tests 05/03/25 05:05 Test 05/03/25 05:05 Range/Units Serum Glucose 150 H 74-106 mg/dL Problem List Hypertensive urgency. Chest pain. CAD s/p CABG. A fib with secondary hypercoagulable state. DM. Hyperlipidemia BPH. Obesity. Assessment/Plan Continued all current supportive medical care. Eliquis. Coreg, Vasotec. IV Hydralazine for SBP >150. Tylenol for pain management. Additional plan as per the hospital course. Plan discussed with: Patient ALEXANDRA MARTINEZ MD May 03, 2025 14:44
== END 2025-05-03 16:34 | disposition home or self-care (01) | DRG 305 ==
LOC: ER 17:59 → EDBD 17:59 → OVERFLOW 19:54 → WEST WING 22:07
PROVIDERS: ADMIT Internal Medicine; ATTEND Internal Medicine
DX: I16.0 Hypertensive urgency (principal); D68.69 Other thrombophilia; I24.9 Acute ischemic heart disease, unspecified; E11.9 Type 2 diabetes mellitus without complications; E66.9 Obesity, unspecified; E78.5 Hyperlipidemia, unspecified; F41.9 Anxiety disorder, unspecified; I48.91 Unspecified atrial fibrillation; N40.0 Benign prostatic hyperplasia without lower urinary tract symptoms; I25.10 Atherosclerotic heart disease of native coronary artery without angina pectoris; Z87.891 Personal history of nicotine dependence; Z88.5 Allergy status to narcotic agent; Z95.1 Presence of aortocoronary bypass graft; Z88.6 Allergy status to analgesic agent; Z68.32 Body mass index [BMI] 32.0-32.9, adult; Z79.899 Other long term (current) drug therapy; Z79.2 Long term (current) use of antibiotics; Z79.82 Long term (current) use of aspirin
CPT/HCPCS: 36415; 71045; 80048; 80053; 81001; 82962; 83036; 84443; 84484; 85025; 93005; 93306; 99291; G0378; J1815